=== PATIENT | male | born 1950 | race Caucasian/White ===

== ENCOUNTER 2018-01-16 07:46 | Outpatient (CLI) | payer MEDICARE, OTHER ==
[2018-01-16 08:36] LABS: CLARITY,URINE CLEAR (Clear); COLOR,URINE YELLOW (Yellow); GLUCOSE, URINE NEGATIVE (Neg); KETONES,URINE NEGATIVE (Neg); LEUKOCYTE ESTERASE ,URINE NEGATIVE (Neg); NITRITES, URINE NEGATIVE (Neg); OCCULT BLOOD,URINE NEGATIVE (Neg); PH,URINE 5.5 (4.8-8.0); PROTEIN,URINE NEGATIVE (Neg); UROBILINOGEN,URINE 0.2 E.U/dL (0.2-1.0)
[2018-01-16 08:43] LABS: UA COLLECTION TYPE CLN CATCH MIDSTREAM
[2018-01-16 08:44] LABS: PROTHROMBIN TIME 10.1 SECONDS (9.0-12.0)
[2018-01-16 08:48] LABS: ALANINE AMINOTRANSFERASE 50 U/L (12-78); ALBUMIN 3.8 G/DL (3.4-5.0); ALKALINE PHOSPHATASE 50 IU/L (46-116); ANION GAP 7 (8-16); ASPARTATE AMINO TRANSFERASE 20 U/L (10-37); BILIRUBIN,TOTAL 0.3 MG/DL (0.1-1.0); BLOOD UREA NITROGEN 22 MG/DL (7-18); BUN/CREATININE RATIO 17.5 (5.4-32.0); CALCIUM 10.1 MG/DL (8.5-10.1); CHLORIDE 101 MMOL/L (99-107); CREATININE 1.26 MG/DL (0.60-1.10); GLUCOSE 111 MG/DL (70-104); POTASSIUM 4.3 MMOL/L (3.5-5.1); SODIUM 138 MMOL/L (135-145); TOTAL CARBON DIOXIDE 30.4 MMOL/L (24-32); TOTAL PROTEIN 7.8 G/DL (6.4-8.2); eGFR 57 ML/MIN
== END 2018-01-16 23:59 | disposition home or self-care (01) ==
LOC: LAB 07:46
PROVIDERS: ATTEND Specialist
DX: Z01.818 Encounter for other preprocedural examination (principal); Z51.81 Encounter for therapeutic drug level monitoring; E11.8 Type 2 diabetes mellitus with unspecified complications; N39.0 Urinary tract infection, site not specified
CPT/HCPCS: 36415; 80053; 81003; 85610; 87070

== ENCOUNTER 2018-01-26 09:48 | Inpatient (IN) | payer MEDICARE, OTHER ==
[2018-01-26] VITALS (16 sets, daily range): BP systolic 109–155; BP diastolic 58–97
[~2018-01-26] VITALS: Ht 175.3 cm; Wt 132.9 kg
[~2018-01-26 09:48] MED LIST: AMLO10TA PO; DOCUMENT DATE & TIME OF BETA-BLOCKER PO ONE; FOSI40TA2 PO; GABA-532 PO; HYDR-568 PO; HYDR25TA4 PO; IBUP-1984 PO; METF500T PO; METO25TA6 PO; MULT-1074 PO; OMEP40CA37 PO; acetaminophen 325mg tablet PO ONE; ceFAZolin inj. 3,000 MG in normal saline 100ml IV soln 100 ML IV ONE; famotidine 20mg tablet PO ONE; gabapentin 300mg capsule PO ONE; oxyCODONE SR 10mg (sust. release) tab PO ONE; ringers solution, lacted 1,000 ML IV SCH; tranexamic acid inj. 1,500 MG in normal saline 100ml IV soln 85 ML IV ONE; vancomycin inj 1,500 MG in normal saline 300ml IV soln IV ONE
[2018-01-26] MEDS ORDERED: bacitracin inj 150,000 UNIT in sodium chloride irrig. sol 3,000 ML IR ONE (11:00)
[2018-01-26] MEDS ORDERED: ringers solution, lacted 1,000 ML IV SCH (11:07)
[2018-01-26] MEDS ORDERED: meperidine/PF 25mg/ml syringe IV PRN ×3 (11:10)
[2018-01-26] MEDS ORDERED: proCHLORperazine 10 MG/2 ml inj IV PRN (11:10)
[2018-01-26] MEDS ORDERED: ondansetron/PF 4mg/2ml inj IV PRN ×3 (11:10→15:00)
[2018-01-26] MEDS ORDERED: morphine 4 MG/ML inj SYRINge IV PRN ×2 (11:10)
[2018-01-26] MEDS ORDERED: ROPIVAcaine 0.5% (5mg/ml) 30ml vial ONE (12:27)
[2018-01-26] MEDS ORDERED: morphine /PF 1mg/ml 10ml inj. ONE (12:45)
[2018-01-26] MEDS ORDERED: MIDAZolam 1mg/ml 10ml vial ONE (12:45)
[2018-01-26] MEDS ORDERED: fentaNYL/PF 50MCG/1 ML 2ML syringe ONE (12:45)
[2018-01-26] MEDS ORDERED: cefazolin 2gm/NS 100ml IVPB IV ONE (12:50)
[2018-01-26] MEDS ORDERED: propofol inj 20 ML IV ONE (13:17)
[2018-01-26] MEDS ORDERED: naloxone 2mg/2ml inj 2 MG in normal saline 500ml IV soln 500 ML IV PRN (13:39)
[2018-01-26] MEDS ORDERED: diphenhydrAMINE 50 mg/ml inj IV PRN (13:40)
[2018-01-26] MEDS: potassium Cl 20mEq in NS 1,000 ML IV SCH (14:57)
[2018-01-26] MEDS ORDERED: diphenhydrAMINE 25mg capsule PO PRN ×2 (15:00)
[2018-01-26] MEDS ORDERED: insulin regular, human vial - multi-dose SQ SCH (15:00)
[2018-01-26] MEDS ORDERED: metoclopramide 5 mg/ml inj IV PRN (15:00)
[2018-01-26] MEDS ORDERED: insulin Lispro (HumaLOG) vial - multi-dose SQ SCH (15:00)
[2018-01-26] MEDS ORDERED: dextrose 50%-water 50ml dispensing syringe IV PRN ×2 (15:00)
[2018-01-26] MEDS ORDERED: bisacodyl 10mg suppository rectal RC PRN (15:00)
[2018-01-26] MEDS ORDERED: naloxone 0.4 mg/ml inj IV PRN (15:00)
[2018-01-26] MEDS ORDERED: mag hydrox/Alum hydrox/simeth 30ml oral suspension PO PRN (15:00)
[2018-01-26] MEDS ORDERED: CADD PCA waste documentation MC PRN (15:00)
[2018-01-26] MEDS ORDERED: glucagon, human recombinant 1mg kit SUBCUT PRN (15:00)
[2018-01-26] MEDS ORDERED: dextrose ORAL solution 15 GM/59 ML bottle PO PRN (15:00)
[2018-01-26] MEDS ORDERED: oxyCODONE IR 5mg (immed. release) tablet PO PRN (15:00)
[2018-01-26] MEDS ORDERED: MESSAGE TO PHARMACY PO ONE (15:00)
[2018-01-26] MEDS ORDERED: gabapentin 400mg capsule PO SCH (16:00)
[2018-01-26] MEDS ORDERED: vancomycin/NS 1 GM ADD-VANTAGE 250 ML IV SCH (20:00)
[2018-01-26] MEDS: metoprolol tartrate 25mg tablet PO SCH (20:53)
[2018-01-26] MEDS: ascorbic acid 500mg tablet PO SCH (20:53)
[2018-01-26] MEDS: ceFAZolin 1GM/D5W- ADD-VANTAGE 50 ML IV SCH (20:54)
[2018-01-26] MEDS: gabapentin 300mg capsule PO SCH (23:45)
[2018-01-26] MEDS: oxyCODONE/APAP 10/325mg tablet PO PRN (23:46)
[2018-01-27 02:00] VITALS: BP 139/86
[2018-01-27] MEDS ORDERED: ceFAZolin 1GM/D5W- ADD-VANTAGE 50 ML IV ONE (03:35)
[2018-01-27] MEDS: potassium Cl 20mEq in NS 1,000 ML IV SCH ×4 (03:50→19:33)
[2018-01-27] MEDS: ceFAZolin 1GM/D5W- ADD-VANTAGE 50 ML IV SCH (03:50)
[2018-01-27] MEDS: oxyCODONE/APAP 10/325mg tablet PO PRN ×5 (05:30→22:16)
[2018-01-27 05:53] LABS: HEMOGLOBIN A1C 6.5 % (4.5-6.2)
[2018-01-27 05:58] LABS: INR 1.2 INR; PARTIAL THROMBOPLASTIN TIME 27 SECONDS (22-32); PROTHROMBIN TIME 12.1 SECONDS (9.0-12.0)
[2018-01-27 06:15] LABS: ALANINE AMINOTRANSFERASE 48 U/L (12-78); ALBUMIN/GLOBULIN RATIO 0.9 (1.1-1.5); ALKALINE PHOSPHATASE 38 IU/L (46-116); ANION GAP 6 (8-16); ASPARTATE AMINO TRANSFERASE 39 U/L (10-37); BILIRUBIN,TOTAL 0.4 MG/DL (0.1-1.0); BLOOD UREA NITROGEN 13 MG/DL (7-18); BUN/CREATININE RATIO 12.3 (5.4-32.0); CALCIUM 8.1 MG/DL (8.5-10.1); CHLORIDE 101 MMOL/L (99-107); CREATININE 1.06 MG/DL (0.60-1.10); GLUCOSE 134 MG/DL (70-104); POTASSIUM 4.3 MMOL/L (3.5-5.1); SODIUM 134 MMOL/L (135-145); TOTAL PROTEIN 6.5 G/DL (6.4-8.2); eGFR 70 ML/MIN
[2018-01-27 07:02] VITALS: BP 136/73
[2018-01-27] MEDS: metFORMIN 500mg tablet PO SCH (07:38)
[2018-01-27] MEDS: pantoprazole 40mg Tablet.DR PO SCH (07:38)
[2018-01-27] MEDS: metoprolol tartrate 25mg tablet PO SCH ×2 (07:38→19:32)
[2018-01-27] MEDS: gabapentin 300mg capsule PO SCH ×3 (07:38→23:35)
[2018-01-27] MEDS: amLODIPine 5mg tablet PO SCH (07:38)
[2018-01-27] MEDS: HYDROchlorothiazide 25mg tablet PO SCH (07:38)
[2018-01-27] MEDS: lisinopril 20mg tablet PO SCH (07:39)
[2018-01-27] MEDS: ascorbic acid 500mg tablet PO SCH ×2 (07:39→19:32)
[2018-01-27 08:57] LABS: BASOPHILS # (AUTO) 0.1 X10'3 (0-0.2); BASOPHILS % (AUTO) 0.5 % (0-1); EOSINOPHILS # (AUTO) 0.3 X10'3 (0-0.9); EOSINOPHILS % (AUTO) 2.4 % (0-6); HEMATOCRIT 35.5 % (42.0-52.0); HEMOGLOBIN 12.2 g/dl (14.0-17.9); LYMPHOCYTES # (AUTO) 1.4 X10'3 (1.1-4.8); LYMPHOCYTES % (AUTO) 10.4 % (21-51); MEAN CORPUSCULAR HEMOGLOBIN 30.6 PG (27.0-31.0); MEAN CORPUSCULAR HGB CONC 34.4 % (33.0-36.5); MEAN CORPUSCULAR VOLUME 88.8 FL (78-98); MEAN PLATELET VOLUME 8.7 FL (7.4-10.4); MONOCYTES # (AUTO) 1.6 X10'3 (0-0.9); MONOCYTES % (AUTO) 11.8 % (2-12); NEUTROPHILS % (AUTO) 74.9 % (42-75); PLATELET COUNT 181 X10'3 (140-440); RED CELL DISTRIBUTION WIDTH 13.5 % (11.5-14.5); WHITE BLOOD COUNT 13.3 X10'3 (4.5-11.0)
[2018-01-27] MEDS ORDERED: warfarin 7.5mg tablet PO ONE (10:00)
[2018-01-27 12:37] VITALS: BP 121/69
[2018-01-27] MEDS: Protein Shake (high protein) 240ml (8oz) cup PO SCH (17:00)
[2018-01-27 18:00] VITALS: BP 144/77
[2018-01-27] MEDS: celeCOXIB 100mg capsule PO SCH (19:32)
[2018-01-27] MEDS ORDERED: celeCOXIB 100mg capsule PO SCH (20:00)
[2018-01-27 22:00] VITALS: BP 135/70
[2018-01-28] MEDS: oxyCODONE/APAP 10/325mg tablet PO PRN ×4 (02:27→18:27)
[2018-01-28 05:36] LABS: INR 1.4 INR; PARTIAL THROMBOPLASTIN TIME 33 SECONDS (22-32); PROTHROMBIN TIME 14.6 SECONDS (9.0-12.0)
[2018-01-28 06:13] LABS: ALANINE AMINOTRANSFERASE 37 U/L (12-78); ALBUMIN 2.8 G/DL (3.4-5.0); ALBUMIN/GLOBULIN RATIO 0.7 (1.1-1.5); ALKALINE PHOSPHATASE 38 IU/L (46-116); ANION GAP 5 (8-16); ASPARTATE AMINO TRANSFERASE 30 U/L (10-37); BILIRUBIN,TOTAL 0.5 MG/DL (0.1-1.0); BLOOD UREA NITROGEN 10 MG/DL (7-18); CALCIUM 8.9 MG/DL (8.5-10.1); CHLORIDE 100 MMOL/L (99-107); GLUCOSE 123 MG/DL (70-104); POTASSIUM 4.1 MMOL/L (3.5-5.1); SODIUM 134 MMOL/L (135-145); TOTAL PROTEIN 6.6 G/DL (6.4-8.2); eGFR 75 ML/MIN
[2018-01-28 07:00] VITALS: BP_SYST 112; BP_SYST 124; BP_DIAS 63; BP_DIAS 69
[2018-01-28] MEDS: celeCOXIB 100mg capsule PO SCH ×2 (07:45→20:23)
[2018-01-28] MEDS: pantoprazole 40mg Tablet.DR PO SCH (07:45)
[2018-01-28] MEDS: metFORMIN 500mg tablet PO SCH (07:45)
[2018-01-28] MEDS: metoprolol tartrate 25mg tablet PO SCH ×2 (07:46→20:23)
[2018-01-28] MEDS: gabapentin 300mg capsule PO SCH ×2 (07:46→15:53)
[2018-01-28] MEDS: HYDROchlorothiazide 25mg tablet PO SCH (07:46)
[2018-01-28] MEDS: ascorbic acid 500mg tablet PO SCH ×2 (07:48→20:23)
[2018-01-28] MEDS: amLODIPine 5mg tablet PO SCH (07:53)
[2018-01-28] MEDS: lisinopril 20mg tablet PO SCH (07:53)
[2018-01-28 10:00] VITALS: BP 124/63
[2018-01-28] MEDS ORDERED: warfarin 5mg tablet PO ONE (10:00)
[2018-01-28] MEDS: Protein Shake (high protein) 240ml (8oz) cup PO SCH (17:00)
[2018-01-28 18:00] VITALS: BP 127/69
[2018-01-28 22:00] VITALS: BP 142/81
[2018-01-29] MEDS: gabapentin 300mg capsule PO SCH ×2 (00:03→08:37)
[2018-01-29] MEDS: oxyCODONE/APAP 10/325mg tablet PO PRN ×2 (04:23→09:44)
[2018-01-29 05:00] VITALS: BP 125/76
[2018-01-29 05:24] LABS: BASOPHILS % (AUTO) 0.3 % (0-1); EOSINOPHILS # (AUTO) 0.8 X10'3 (0-0.9); EOSINOPHILS % (AUTO) 5.5 % (0-6); HEMATOCRIT 33.1 % (42.0-52.0); HEMOGLOBIN 11.2 g/dl (14.0-17.9); LYMPHOCYTES # (AUTO) 2.3 X10'3 (1.1-4.8); LYMPHOCYTES % (AUTO) 16.2 % (21-51); MEAN CORPUSCULAR HEMOGLOBIN 30.2 PG (27.0-31.0); MEAN CORPUSCULAR HGB CONC 33.7 % (33.0-36.5); MEAN CORPUSCULAR VOLUME 89.7 FL (78-98); MEAN PLATELET VOLUME 9.7 FL (7.4-10.4); MONOCYTES # (AUTO) 1.5 X10'3 (0-0.9); MONOCYTES % (AUTO) 10.4 % (2-12); NEUTROPHILS # (AUTO) 9.7 X10'3 (1.8-7.7); NEUTROPHILS % (AUTO) 67.6 % (42-75); PLATELET COUNT 173 X10'3 (140-440); RED BLOOD COUNT 3.69 X10'6 (4.70-6.10); RED CELL DISTRIBUTION WIDTH 13.3 % (11.5-14.5); WHITE BLOOD COUNT 14.3 X10'3 (4.5-11.0)
[2018-01-29 05:33] LABS: INR 1.5 INR; PARTIAL THROMBOPLASTIN TIME 38 SECONDS (22-32); PROTHROMBIN TIME 15.3 SECONDS (9.0-12.0)
[2018-01-29 06:07] LABS: ALANINE AMINOTRANSFERASE 33 U/L (12-78); ALBUMIN 2.7 G/DL (3.4-5.0); ALBUMIN/GLOBULIN RATIO 0.7 (1.1-1.5); ALKALINE PHOSPHATASE 41 IU/L (46-116); ANION GAP 7 (8-16); ASPARTATE AMINO TRANSFERASE 27 U/L (10-37); BILIRUBIN,TOTAL 0.3 MG/DL (0.1-1.0); BLOOD UREA NITROGEN 12 MG/DL (7-18); BUN/CREATININE RATIO 12.8 (5.4-32.0); CALCIUM 9.4 MG/DL (8.5-10.1); CHLORIDE 98 MMOL/L (99-107); CREATININE 0.94 MG/DL (0.60-1.10); GLUCOSE 107 MG/DL (70-104); POTASSIUM 4.2 MMOL/L (3.5-5.1); SODIUM 134 MMOL/L (135-145); TOTAL CARBON DIOXIDE 29.4 MMOL/L (24-32); TOTAL PROTEIN 6.6 G/DL (6.4-8.2); eGFR 80 ML/MIN
[2018-01-29] MEDS ORDERED: ASPI-1264 PO (07:16)
[2018-01-29] MEDS ORDERED: WALKERFR (07:16)
[2018-01-29] MEDS: pantoprazole 40mg Tablet.DR PO SCH (08:36)
[2018-01-29] MEDS: metFORMIN 500mg tablet PO SCH (08:36)
[2018-01-29] MEDS: celeCOXIB 100mg capsule PO SCH (08:36)
[2018-01-29] MEDS: HYDROchlorothiazide 25mg tablet PO SCH (08:37)
[2018-01-29] MEDS: amLODIPine 5mg tablet PO SCH (08:37)
[2018-01-29] MEDS: ascorbic acid 500mg tablet PO SCH (08:37)
[2018-01-29] MEDS: metoprolol tartrate 25mg tablet PO SCH (08:37)
[2018-01-29] MEDS: lisinopril 20mg tablet PO SCH (08:37)
[2018-01-29] MEDS ORDERED: warfarin 5mg tablet PO ONE (10:00)
== END 2018-01-29 09:55 | disposition home health service (06) | DRG 470 ==
LOC: PAS IN 10:50 → EDSTATUS 13:00 → EDUNIT# 13:00 → EDSTATUS 13:00 → ORTHO 4S 16:29
PROVIDERS: ADMIT Specialist; ATTEND Specialist
PROC: 5A09357 Assistance with Respiratory Ventilation, Less than 24 Consecutive Hours, Continuous Positive Airway Pressure (ICD-10-PCS; 2018-01-26)
PROC: 0SRB02Z Replacement of Left Hip Joint with Metal on Polyethylene Synthetic Substitute, Open Approach (ICD-10-PCS; principal; 2018-01-26 12:30)
DX: M16.0 Bilateral primary osteoarthritis of hip (principal); Z68.41 Body mass index [BMI] 40.0-44.9, adult; D62 Acute posthemorrhagic anemia; E66.01 Morbid (severe) obesity due to excess calories; E11.9 Type 2 diabetes mellitus without complications; K21.9 Gastro-esophageal reflux disease without esophagitis; G47.30 Sleep apnea, unspecified; I10 Essential (primary) hypertension; G89.29 Other chronic pain; M54.5 Low back pain; I25.10 Atherosclerotic heart disease of native coronary artery without angina pectoris; M81.0 Age-related osteoporosis without current pathological fracture; Z96.653 Presence of artificial knee joint, bilateral; Z95.2 Presence of prosthetic heart valve; Z79.01 Long term (current) use of anticoagulants; Z79.899 Other long term (current) drug therapy; Z79.84 Long term (current) use of oral hypoglycemic drugs; Z86.718 Personal history of other venous thrombosis and embolism
CPT/HCPCS: 36415; 71046; 73502; 80053; 82948; 83036; 85025; 85610; 85730; 86885; 86900; 86901; 97110; 97116; 97161; 97530; A6253; A6449; A6455; A7000; C1758; C1776; J0690; J2250; J2274; J2704; J2795; J3010; J3370; J7030; J7120

== ENCOUNTER 2018-09-07 11:17 | Inpatient (IN) | payer MEDICARE, OTHER | END 2018-09-10 10:10 | disposition home health service (06) | LOC: PAS IN 11:17 → ORTHO 4S 16:45 | PROC: 0SR90J9 Replacement of Right Hip Joint with Synthetic Substitute, Cemented, Open Approach (ICD-10-PCS; principal; 2018-09-07 13:23) | DX: M16.11 Unilateral primary osteoarthritis, right hip (principal); D62 Acute posthemorrhagic anemia ==